=== PATIENT | female | born 1935 | race Caucasian/White ===

== ENCOUNTER 2021-10-16 21:08 | Inpatient (IN) | payer OTHER ==
[~2021-10-16] VITALS: Ht 167.6 cm; Wt 40.4 kg
[2021-10-16 21:09] VITALS: BP 160/75
--- NOTE | 2021-10-16 21:19 | NUR ---
PT BIBA BLS ER BED 7
--- NOTE | 2021-10-16 21:26 | NUR ---
PT ON SUPERVISOR PILE DRIVING
[2021-10-16] MEDS ORDERED: NACL 0.9% 1,000 ML IV ONE (21:30)
[2021-10-16] MEDS ORDERED: ONDANSETRON 4 MG/2 ML VIAL IVP ONE (21:30)
--- NOTE | 2021-10-16 21:52 | NUR ---
PT TAKEN TO CT
--- NOTE | 2021-10-16 21:53 | NUR ---
pt taken to ct
--- NOTE | 2021-10-16 21:53 | NUR ---
24G IV CATH PLACED IN L FOREARM
[2021-10-16 22:02] LABS: BASOPHILS # (AUTO) 0.1 K/uL (0.00-0.22); BASOPHILS % (AUTO) 1.2 % (0.0-2.0); EOSINOPHILS # (AUTO) 0.1 K/uL (0-0.4); EOSINOPHILS % (AUTO) 1.4 % (0.0-4.0); HEMATOCRIT 33.3 % (36-48); LYMPHOCYTES # (AUTO) 0.7 K/uL (2.5-16.5); LYMPHOCYTES % (AUTO) 16.2 % (20.5-51.1); MEAN CORPUSCULAR HEMOGLOBIN 33 pg (27-31); MEAN CORPUSCULAR HGB CONC 33 g/dL (33-37); MONOCYTES # (AUTO) 0.3 K/uL (0.8-1.0); NEUTROPHILS # (AUTO) 3.3 K/uL (1.8-7.7); NEUTROPHILS % (AUTO) 74.2 % (42.2-75.2); PLATELET COUNT (AUTO) 246 K/uL (140-450); RED BLOOD CELL COUNT(AUTO) 3.29 MIL/uL (4.20-5.40); RED CELL DISTRIBUTION WIDTH 16.5 % (11.6-13.7); WHITE BLOOD COUNT (AUTO) 4.4 K/uL (4.8-10.8)
--- NOTE | 2021-10-16 22:07 | NUR ---
PT RETURNED FROM CT
[2021-10-16 22:23] LABS: ALBUMIN 3.4 g/dL (3.4-5.0); ANION GAP 13.3 (8-16); ASPARTATE AMINOTRANSFERASE 15 U/L (15-37); CHLORIDE 107 mmol/L (98-107); CREATININE 0.8 mg/dL (0.6-1.3); GLUCOSE 151 mg/dL (74-106); LIPASE 55 U/L (73-393); POTASSIUM 3.3 mmol/L (3.5-5.1); SODIUM SERUM 144 mmol/L (136-145); TOTAL BILIRUBIN 0.6 mg/dL (0.0-1.0); UREA NITROGEN, BLOOD 19 mg/dL (7-18)
--- NOTE | 2021-10-16 23:35 | NUR ---
URINE COLLECTED AND SENT TO LAB
--- NOTE | 2021-10-16 23:36 | NUR ---
86 YO F BIB A FROM [facility]. PT HAS NOT BEEN EATING/ DRINKING FOR TWO DAYS . PT STATES SHE FEELS WEAK . PT STATES SHE HAS NPT HAD ANY OTHER PROBLEMS . DENIES N/F//COUGH/ CHEST PAIN. PT HAS HAD LOOSE STOOLS X FEW DAYS. PT HAD SOB. EMR STATES THEY GAVE HER 3L NC AND WAS AT 99 % ROOM AIR. PT IS NOW ON ROOM AIR, PT HAS HISTORY AFIB AND DEMENTIA UPON RIDE IN EMS PT VOMITED BUT HAS STOPPED
--- NOTE | 2021-10-16 23:45 | NUR ---
PT REFUSED MED STATES SHE DOESNT WANT "THAT STUFF"
[2021-10-16 23:48] LABS: APPEARANCE,URINE HAZY (CLEAR); BILIRUBIN,URINE NEGATIVE (NEGATIVE); BLOOD, URINE TRACE-I (NEGATIVE); COLOR,URINE YELLOW (YELLOW); LEUKOCYTE ESTERASE ,URINE NEGATIVE (NEGATIVE); NITRITE, URINE NEGATIVE (NEGATIVE); PH,URINE 6.5 (5.0-9.0); UGLUCOSE NEGATIVE (NEGATIVE)
[2021-10-16 23:58] LABS: WBC,URINE 0-5 /HPF (0-5)
[2021-10-17] MEDS ORDERED: LORazepam 0.5 MG TAB PO ONE (01:05)
[2021-10-17] MEDS ORDERED: cefTRIAXone 1,000 MG VIAL ONE (01:27)
[2021-10-17] MEDS ORDERED: AMLO5TAB PO (01:51)
[2021-10-17] MEDS ORDERED: CITA20TA15 PO (01:52)
[2021-10-17] MEDS ORDERED: LEVO0.083 PO (01:54)
[2021-10-17] MEDS ORDERED: ACET-10509 PO (01:55)
[2021-10-17] MEDS ORDERED: LOPE1LIQ PO (02:56)
--- NOTE | 2021-10-17 04:20 | NUR ---
PT AGITATED WANTS TO GO HOME
[2021-10-17] MEDS ORDERED: LORazepam 2 MG/ML VIAL ONE (06:51)
--- NOTE | 2021-10-17 07:21 | NUR ---
Pt report received from AIDE Walker . Transfer of care at this time.
[2021-10-17] MEDS ORDERED: LORazepam 2 MG/ML VIAL IVP SCH (07:25)
--- NOTE | 2021-10-17 07:25 | NUR ---
RECEIVED REPORT FROM MANAGER SOUNDTANVI KIMBROUGH. PT A&OX1, VERY CONFUSED. NEEDS FREQUENT REDIRECTION. PERRLA. ROOM AIR. RESPIRATIONS EVEN AND UNLABORED. 24G IV TO L FOREARM SALINE LOCK. BOWEL SOUNDS ACTIVE. MILD WEAKNESS. STANDARD PRECAUTION. BED IN LOWEST POSITION. CALL LIGHT WITHIN REACH.
--- NOTE | 2021-10-17 07:31 | NUR ---
Patient will be admitted to care of Dr Carrillo. Admited to ICU. Will go to bed 2 for hospital convenience. Belongings list completed. Report to TANVI Thompson.
[2021-10-17 08:00] VITALS: BP 115/60
[2021-10-17] MEDS ORDERED: DOCUSATE SODIUM 100 MG GELCAP PO PRN (09:10)
[2021-10-17] MEDS ORDERED: ONDANSETRON 4 MG/2 ML VIAL IM/IVP PRN (09:10)
[2021-10-17] MEDS ORDERED: POTASSIUM CHLORIDE 10 MEQ TABER PO PRN (09:10)
[2021-10-17] MEDS ORDERED: guaiFENesin DM 200/20 MG-10 ML 10 ML UDC PO PRN (09:10)
[2021-10-17] MEDS ORDERED: ZOLPIDEM 5 MG TAB PO PRN (09:10)
[2021-10-17] MEDS ORDERED: POTASSIUM CHLORIDE 10 MEQ TABER PO SCH (10:00)
--- NOTE | 2021-10-17 10:10 | NUR ---
24 G IV TO LAC INFILTRATED. STARTED NEW IV 20G TO LAC. FLUSHES WELL. GOOD BLOOD RETURN. PATENT, INTACT. SALINE LOCK.
[2021-10-17] MEDS: NACL 0.9% 1,000 ML IV SCH ×2 (10:30→21:08)
[2021-10-17 11:02] LABS: BASOPHILS # (AUTO) 0.1 K/uL (0.00-0.22); EOSINOPHILS % (AUTO) 0.4 % (0.0-4.0); HEMATOCRIT 33.1 % (36-48); LYMPHOCYTES # (AUTO) 0.9 K/uL (2.5-16.5); MEAN CORPUSCULAR HEMOGLOBIN 34 pg (27-31); MEAN CORPUSCULAR HGB CONC 33 g/dL (33-37); MEAN CORPUSCULAR VOLUME 101.4 fL (80-94); MONOCYTES # (AUTO) 0.3 K/uL (0.8-1.0); MONOCYTES % (AUTO) 5.7 % (1.7-9.3); NEUTROPHILS % (AUTO) 75.9 % (42.2-75.2); PLATELET COUNT (AUTO) 269 K/uL (140-450); RED BLOOD CELL COUNT(AUTO) 3.26 MIL/uL (4.20-5.40); RED CELL DISTRIBUTION WIDTH 16.2 % (11.6-13.7); WHITE BLOOD COUNT (AUTO) 5.3 K/uL (4.8-10.8)
[2021-10-17 11:14] LABS: PROTHROMBIN TIME 10.3 secs (10.8-13.4)
[2021-10-17 11:29] LABS: CHOL/HDL RATIO 3.1 (1-4.5); FREE T4 (FREE THYROXINE) 1.16 ng/dL (0.76-1.46); THYROID STIMULATING HORMONE 0.69 uIU/mL (0.34-3.74)
--- NOTE | 2021-10-17 11:45 | NUR ---
PT FREQUENTLY TRYING TO GET OUT OF BED. REDIRECTED. CONTACTED DR. DE LA CRUZ FOR ORDERS. ORDERED SEROQUEL 25 MG BID.
[2021-10-17 12:00] VITALS: BP 154/93
[2021-10-17] MEDS ORDERED: QUEtiapine FUMARATE 25 MG TAB PO SCH (12:10)
[2021-10-17 12:38] LABS: ALBUMIN 3.5 g/dL (3.4-5.0); ASPARTATE AMINOTRANSFERASE 17 U/L (15-37); CARBON DIOXIDE 24.5 mmol/L (21-32); CHLORIDE 108 mmol/L (98-107); CREATININE 0.7 mg/dL (0.6-1.3); GLUCOSE 111 mg/dL (74-106); MAGNESIUM 1.8 mg/dL (1.8-2.4); POTASSIUM 3.5 mmol/L (3.5-5.1); SODIUM SERUM 142 mmol/L (136-145); TOTAL BILIRUBIN 0.5 mg/dL (0.0-1.0); UREA NITROGEN, BLOOD 18 mg/dL (7-18)
--- NOTE | 2021-10-17 13:27 | NUR ---
PT HAD MODERATE SIZE BM AND USED PUREWICK TO URINATE. INCONTINENT OF BOWEL BUT CONTINENT OF BLADDER. PERICARE PERFORMED. ALL COMFORT NEEDS MET AT THIS TIME.
[2021-10-17] MEDS: LORazepam 0.5 MG TAB PO PRN (15:46)
[2021-10-17 16:00] VITALS: BP 131/93
--- NOTE | 2021-10-17 16:45 | NUR ---
ENDORSED REPORT TO TANVI COATS. PT TRANSFERRED TO [facility] BED 121A.
--- NOTE | 2021-10-17 16:46 | NUR ---
RECEIVED REPORT FROM TANVI PRYOR FOR CONTINUITY OF CARE. PT IS STABLE.
--- NOTE | 2021-10-17 17:15 | NUR ---
SPEECH THERAPIST AT BEDSIDE.
--- NOTE | 2021-10-17 17:27 | NUR ---
PT WAS SEEN FOR DYSPHAGIA. PT WAS ABLE TO SAFELY SWALLOW MS DIET WITH THIN LIQUID WITHOUT S/S OF ASPIRATION. RECOMMENDATION MS DIET WITH THIN LIQUID
[2021-10-17] MEDS ORDERED: HALOPERIDOL IM 5 MG/ML VIAL IM ONE (18:30)
[2021-10-17] MEDS ORDERED: HALOPERIDOL IM 5 MG/ML VIAL ONE (18:34)
--- NOTE | 2021-10-17 19:37 | NUR ---
ENDORSED TO MACHINE SET UP OPERATOR PAPER GOODS NURSE FOR CONTINUITY OF CARE. PT IS STABLE.
--- NOTE | 2021-10-17 19:39 | NUR ---
GET THE REPORT FROM MORNING NURSE JORGE L , PATIENT IS LYING ON BED, PATIENT IS ALERT ORIENTED X1, ALL FALL PRECAUTION MEASURE ARE IN PLACE, PATIENT IS REFUSED TO HAVE COCOA PRESS OPERATOR ON HER , CALL LIGHT IS WITHIN THE REACH, WILL CONTINUE TO MONITOR PATIENT.
[2021-10-17 20:00] VITALS: BP 128/65
[2021-10-17] MEDS: QUEtiapine FUMARATE 25 MG TAB PO SCH (20:38)
--- NOTE | 2021-10-17 20:39 | NUR ---
NOT ADMINISTER SEROQUEL 50 MG PO DUE TO PATIENT IS DROWSY AND IN DEEP SLEEP, WILL CONTINUE TO MONITOR PATIENT.
--- NOTE | 2021-10-17 21:10 | NUR ---
PATIENT IS LYING ON BED, VITAL SIGN IS WITHIN THE NORMAL RANGE, NO ANY COMPLAIN OF PAIN OR SHORTNESS AT THIS TIME, ALL OTHER SCHEDULE MEDICATION IS GIVEN PER DOCTOR ORDER, CALL LIGHT IS WITHIN THE REACH, WILL CONTINUE TO MONITOR PATIENT.
--- NOTE | 2021-10-17 21:12 | NUR ---
MASSAGE THE DOCTOR JONO TO GET ORDER FOR SITTER FOR PATIENT, WILL WAIT FOR DOCTOR RESPONSE, CALL LIGHT IS WITHIN THE REACH, WILL CONTINUE TO MONITOR PATIENT.
--- NOTE | 2021-10-17 21:36 | NUR ---
DOCTOR JONO REPLIED WITH OF TO HAVE SITTER FOR PATIENT,WILL FOLLOW DOCTOR ORDER, CALL LIGHT IS WITHIN THE REACH, WILL CONTINUE TO MONITOR PATIENT.
[2021-10-18] VITALS: BP 122/68
[2021-10-18 04:00] VITALS: BP 168/72
--- NOTE | 2021-10-18 04:14 | NUR ---
VITAL SIGN IS WITHIN THE NORMAL RANGE, NO ANY COMPLAIN OF PAIN OR SHORTNESS OF BREATH, CALL LIGHT IS WITHIN THE REACH, WILL CONTINUE TO MONITOR PATIENT.
--- NOTE | 2021-10-18 04:41 | NUR ---
PATIENT BLOOD PRESSURE IS 168/72,HR :88/M, MASSAGE DOCTOR JONO ABOUT PATIENT BLOOD PRESSURE, WAITING FOR DOCTOR TO RESPONSE, CALL LIGHT IS WITHIN THE REACH, WILL CONTINUE TO MONITOR PATIENT.
[2021-10-18 05:49] LABS: BASOPHILS # (AUTO) 0.1 K/uL (0.00-0.22); BASOPHILS % (AUTO) 2.8 % (0.0-2.0); EOSINOPHILS # (AUTO) 0.2 K/uL (0-0.4); EOSINOPHILS % (AUTO) 3.7 % (0.0-4.0); HEMATOCRIT 30.1 % (36-48); HEMOGLOBIN 10.1 g/dL (12.0-16.0); LYMPHOCYTES # (AUTO) 1.1 K/uL (2.5-16.5); LYMPHOCYTES % (AUTO) 25.6 % (20.5-51.1); MEAN CORPUSCULAR HEMOGLOBIN 34 pg (27-31); MEAN CORPUSCULAR HGB CONC 34 g/dL (33-37); MEAN CORPUSCULAR VOLUME 100.5 fL (80-94); MONOCYTES # (AUTO) 0.4 K/uL (0.8-1.0); MONOCYTES % (AUTO) 9.5 % (1.7-9.3); NEUTROPHILS # (AUTO) 2.4 K/uL (1.8-7.7); NEUTROPHILS % (AUTO) 58.4 % (42.2-75.2); PLATELET COUNT (AUTO) 246 K/uL (140-450); RED CELL DISTRIBUTION WIDTH 16.3 % (11.6-13.7); WHITE BLOOD COUNT (AUTO) 4.2 K/uL (4.8-10.8)
[2021-10-18 06:30] LABS: ANION GAP 9.4 (8-16); CHLORIDE 112 mmol/L (98-107); CREATININE 0.8 mg/dL (0.6-1.3); GLUCOSE 95 mg/dL (74-106); POTASSIUM 3.4 mmol/L (3.5-5.1); SODIUM SERUM 144 mmol/L (136-145); UREA NITROGEN, BLOOD 15 mg/dL (7-18)
--- NOTE | 2021-10-18 06:35 | NUR ---
MASSAGE DOCTOR JONO AGAIN ABOUT PATIENT BLOOD PRESSURE MEDICATION, STILL WAITING FOR DOCTOR TO RESPONSE, CALL LIGHT IS WITHIN THE REACH, WILL CONTINUE TO MONITOR PATIENT.
[2021-10-18] MEDS ORDERED: hydrALAZINE 20 MG/ML VIAL ONE (07:00)
[2021-10-18] MEDS ORDERED: hydrALAZINE 20 MG/ML VIAL IVP PRN (07:00)
[2021-10-18 07:06] LABS: T4 (THYROXINE) 8.4 ug/dL (4.5-12.0)
--- NOTE | 2021-10-18 07:11 | NUR ---
DR DE LA CRUZ ORDER HYDRALAZINE 10 MG IV FOR SBP>160, CALL THE [facility] TO VERIFY THE MEDICATION , THEY SAID THEY ARE OUT OF SERVICE FOR [facility] , MEDICATION OVERRIDE FROM STOCK MEDICATION ANG GIVEN TO PATIENT. CALL LIGHT IS WITHIN THE REACH, WILL CONTINUE TO MONITOR PATIENT.
--- NOTE | 2021-10-18 07:15 | NUR ---
RECEIVED BEDSIDE REPORT FROM PASTOR REDDING RN FOR CONTINUITY OF CARE. PT SUPINE IN THE BED. AAOX1. ON RM AIR. AFIB/ ST ON TELE MONITOR. RFA 22G PATENT, INTACT, INFUSING NS AT 60 ML/H. INCONTINENT OF BOWEL AND BLADDER. MODERATE WEAKNESS. SKIN INTACT. SITTER AT BEDSIDE. STANDARD ISOLATION. INITIAL ASSESSMENT COMPLETE, WILL CONTINUE TO CLOSELY MONITOR.
--- NOTE | 2021-10-18 07:40 | NUR ---
GAVE THE REPORT TO MORNING NURSE MONICA FOR CONTINUOS OF CARE, PATIENT IS STABLE.
[2021-10-18 08:00] VITALS: BP 181/95
--- NOTE | 2021-10-18 08:28 | NUR ---
PATIENT HAS BEEN SCREENED AND CATEGORIZED HIGH NUTRITION RISK. PATIENT WILL BE SEEN WITHIN 1-2 DAYS OF ADMISSION. 10/17/21-10/18/[address]
[2021-10-18 09:06] LABS: FOLIC ACID 5.7 ng/mL (>3.0)
[2021-10-18] MEDS: QUEtiapine FUMARATE 25 MG TAB PO SCH (09:30)
[2021-10-18] MEDS: LORazepam 0.5 MG TAB PO PRN (09:36)
[2021-10-18] MEDS: LEVOTHYROXINE 0.088 MG TAB PO SCH (09:42)
[2021-10-18] MEDS: CITALOPRAM 20 MG TAB PO SCH (09:44)
[2021-10-18] MEDS: amLODIPine 5 MG TAB PO SCH (09:44)
[2021-10-18] MEDS: PANTOPRAZOLE 40 MG TABEC PO SCH (09:45)
[2021-10-18] MEDS ORDERED: HALOPERIDOL IM 5 MG/ML VIAL ONE (10:21)
[2021-10-18] MEDS: HALOPERIDOL IM 5 MG/ML VIAL IM PRN (10:25)
--- NOTE | 2021-10-18 10:30 | NUR ---
DR DE LA CRUZ ROUNDMESHA AT BEDSIDE. PT VERY AGITATED. PULLED IV TUBING APART. DR ORDERED SOFT WRIST RESTRAINTS. HALDOL 5MG IM Q8H PRN FOR AGITATION, HE SAID HE WILL INCREASE SEROQUEL DOSE TO 100 MG, HE ALSO ORDERED PSYCH CONSULT. HALDOL GIVEN ORDERED NOW. WILL CONTINUE TO CLOSELY MONITOR.
[2021-10-18] MEDS ORDERED: QUEtiapine FUMARATE 25 MG TAB PO SCH ×2 (11:30→12:00)
[2021-10-18 12:00] VITALS: BP 164/73
--- NOTE | 2021-10-18 12:00 | NUR ---
PT RESTING, SITTER AT BEDSIDE. WILL CONTINUE TO CLOSELY MONITOR.
--- NOTE | 2021-10-18 14:00 | NUR ---
PT AWAKE, SEROQUEL GIVEN LATE DUE TO PT REFUSING EARLIER, CRUSHED TABS WITH PINEAPPLE CUP FROM LUNCH TRAY.
[2021-10-18 16:00] VITALS: BP 164/73
--- NOTE | 2021-10-18 16:00 | NUR ---
PT RESTING. RESPIRATIONS EVEN AND UNLABORED. WILL CONTINUE TO CLOSELY MONITOR.
--- NOTE | 2021-10-18 17:48 | NUR ---
10/18/2021 RD INITIAL ASSESSMENT COMPLETED. PLEASE REFER TO NUTRITION ASSESSMENT UNDER CARE ACTIVITY FOR ESTIMATED NUTRITIONAL NEEDS. 1.CONTINUE WITH PUREED DIET PT TOLERATES. WHEN/IF MEDICALLY APPROPRIATE, MAY ADVANCE TO MECHANICAL SOFT. 2.IF PT TOLERATES ENSURE GIVEN DURING RD VISIT, RECOMMEND ENSURE TID TO OPTIMIZE NUTRITION. 3.MONITOR PO INTAKE. 4.RD TO FOLLOW-UP IN 2-3 DAYS PATIENT IS HIGH RISK. GOLDIE WEISS RD
--- NOTE | 2021-10-18 17:50 | NUR ---
SPOKE WITH PT DAUGHTER SONA VIA PHONE AND UPDATED REGARDING PT CONDITION AND PLAN OF CARE. ALL QUESTIONS ANSWERED.
[2021-10-18] MEDS: NACL 0.9% 1,000 ML IV SCH ×2 (18:30→23:08)
--- NOTE | 2021-10-18 19:10 | NUR ---
endorsed bedside report to jordyn yates rn for continuity of care. all questions answered.
--- NOTE | 2021-10-18 19:11 | NUR ---
RECEIVED PT FROM MORNING SHIFT NURSE. PT IS AAOX2, ABLE TO VERBALIZE NEEDS AND ABLE TO FOLLOW COMMANDS. PT IS ON ROOM AIR, AND ON MECHANICAL SOFT DIET DIET. PT HAS RIGHT FOREARM GAUGE 22 RUNNING WITH NS AT 60ML/HR. PT SKIN IS INTACT. NO COMPLAIN OF PAIN THIS TIME AND NO S/S OF RESPIRATORY DISTRESS NOTED. ALL SAFETY MEASURES IMPLEMENTED. CALL LIGHT WITHIN REACH, BED IN LOW POSITION AND BED WHEELS ON LOCKED.
--- NOTE | 2021-10-18 19:52 | NUR ---
endorsed bedside report to jordyn yates rn for continuity of care. all questions answered. Addendum: 10/18/21 at 1953 by Samantha Irvin RN wrong time please disregard
[2021-10-18 20:00] VITALS: BP 145/90
[2021-10-18] MEDS: QUEtiapine FUMARATE 100 MG TAB PO SCH (20:30)
--- NOTE | 2021-10-18 20:30 | NUR ---
ALL SCHEDULED PRESCRIBED MEDICATION WAS GIVEN TO PT PER MD ORDER. PT TOLERATED IT WELL. ALL SAFETY MEASURES IMPLEMENTED. CALL LIGHT WITHIN REACH, BED IN LOW POSITION AND BED WHEELS ON LOCKED.
--- NOTE | 2021-10-18 23:08 | NUR ---
CHANGED NEW NS RUNNING AT 60ML/HR. ALL SAFETY MEASURES IMPLEMENTED. BED WHEELS ON LOCKED. BED IN LOW POSITION AND CALL LIGHT WITHIN REACH.
[2021-10-19] VITALS: BP 141/65
--- NOTE | 2021-10-19 | NUR ---
PT WAS GIVEN WATER PER PT REQUEST. NO COMPLAIN OF PAIN. NO S/S OF REPARATORY DISTRESS NOTED. ALL SAFETY MEASURES IMPLEMENTED. BED WHEELS ON LOCKED. BED IN LOW POSITION AND CALL LIGHT WITHIN REACH.
--- NOTE | 2021-10-19 02:00 | NUR ---
PT IS SLEEPING. CHEST RISE AND FALL SYMMETRICALLY NOTED. RESPIRATION ARE EVEN AND UNLABORED. NO S/S OF REPARATORY DISTRESS NOTED. ALL SAFETY MEASURES IMPLEMENTED. BED WHEELS ON LOCKED. BED IN LOW POSITION AND CALL LIGHT WITHIN REACH.
[2021-10-19 04:00] VITALS: BP 158/71
--- NOTE | 2021-10-19 04:00 | NUR ---
PT IS LYING ON THE BED STILL SLEEPING. CHEST RISE AND FALL SYMMETRICAL NOTED WITH PULSE OF 73 AND WITH A-FIB/PVC'S RHYTHM. NO S/S OF RESPIRATORY DISTRESS. ALL SAFETY MEASURES IMPLEMENTED. BED WHEELS ON LOCKED. BED IN LOW POSITION AND CALL LIGHT WITHIN REACH.
--- NOTE | 2021-10-19 05:15 | NUR ---
MORNING CARE WAS DONE TO PT. CHANGED DIAPER, LINENS AND GOWN. ALL SAFETY MEASURES IMPLEMENTED. BED WHEELS ON LOCKED, BED IN LOW POSITION AND CALL LIGHT WITHIN REACH.
--- NOTE | 2021-10-19 05:52 | NUR ---
PT REFUSED TO GET BLOOD SAMPLE. PT WAS EDUCATED THE IMPORTANCE OF GETTING BLOOD SAMPLE. SHE STILL REFUSED.
[2021-10-19] MEDS: HALOPERIDOL IM 5 MG/ML VIAL IM PRN (07:15)
--- NOTE | 2021-10-19 07:36 | NUR ---
PT IS STABLE. ENDORSED PT TO MORNING SHIFT NURSE FOR CONTINUITY OF CARE.
--- NOTE | 2021-10-19 07:37 | NUR ---
RECEIVED REPORT FROM SMALL ARMS REPAIRER NURSE FOR CONTINUITY OF CARE. PATIENT CALM ASLEEP NO RESTRAINT ON ON ONE ON ONE SITTER. RESPIRATION EVEN AND NOT LABORED NO SHORTNESS OF BREATH ON ROOM AIR. IV SITE ON RIGHT FOREARM BROOKE 22 RUNNING NS AT 60 CC/HOURS. ALL SAFETY MEASURE IN PLACE.
[2021-10-19 08:00] VITALS: BP 150/89
--- NOTE | 2021-10-19 08:00 | NUR ---
REVIEWED AND DISCUSSED PLAN OF CARE WITH AIDE MCGRATH. PT IN STABLE CONDITION.
[2021-10-19] MEDS: PANTOPRAZOLE 40 MG TABEC PO SCH (09:01)
[2021-10-19] MEDS: LEVOTHYROXINE 0.088 MG TAB PO SCH (09:01)
[2021-10-19] MEDS: QUEtiapine FUMARATE 100 MG TAB PO SCH (09:01)
[2021-10-19] MEDS: amLODIPine 5 MG TAB PO SCH (09:02)
[2021-10-19] MEDS: CITALOPRAM 20 MG TAB PO SCH (09:02)
--- NOTE | 2021-10-19 09:04 | NUR ---
GIVEN HER DUE MEDIATION TOLERATED WELL BUT DON'T WANT TO EAT BREAKFAST AT THIS TIME SHE SAID A LITTLE BIT LATER.
[2021-10-19] MEDS ORDERED: CEPH-588 PO (10:16)
[2021-10-19] MEDS ORDERED: QUET100T PO (10:16)
--- NOTE | 2021-10-19 10:49 | NUR ---
P.T. NOTES P.T. EVAL COMPLETED; REFER TO EVAL FOR DETAILS.
--- NOTE | 2021-10-19 10:51 | NUR ---
ALECIA outreached to [facility] at [phone] to set up transportation back to [facility], [address] [facility] [address]. [facility] dispatch reported diamond picker time at 6:30 pm and reported they would provide an update, if pickup time changes. Addendum: 10/19/21 at 1121 by Jairo Connell SS ALECIA OUTREACHED TO NURSING STATION TO PROVIDE AN UPDATE ON TRANSPORT FOR PATIENT. ALECIA SPOKE WITH TONY WHO REPORTED SHE WILL PROVIDE PATIENTS NURSE, WITH DETAILS OF [facility] ESC[facility] INFORMATION.
--- NOTE | 2021-10-19 11:13 | NUR ---
I GOT CALL FROM CASE MANAGE THAT PATIENT WILL BE CLINICAL PSYCHOLOGY PROFESSOR AT 6:30 PM BY [facility] AND WILL BE BACK TO [facility] PATIENT AWARE.
--- NOTE | 2021-10-19 11:16 | NUR ---
DC PLANNING SW OUTREACHED TO [facility] TO GATHER COLLATERAL INFORMATION AND TO SET UP TRANSPORTATION. [facility] REPORTS THAT FACILITY DOES NOT PROVIDE TRANSPORTATION BACK TO FACILITY. [facility] ADMIN REPORTS PATIENT HAS BEEN A RESIDENT SINE NOV 2020. PATIENT IS REPORTEDLY AMBULATORY WITH [facility], HOWEVER, PATIENT ON OCCASION IS FORGETFUL AND DOES NOT UTILIZE REQUIRED. PATIENT REQUIRES MINIMUM ASSISTANCE WITH ADL'S. DC PLAN IS FOR PATIENT TO RETURN TO [facility]. SW SPOKE WITH DAUGHTER, SONA TO PROVIDE AN UPDATE. SW NOTIFIED SONA THAT PATIENT IS TO BE DISCHARGED AND TRANSPORTED BACK TO [facility]. TRANSPORT ARRANGED WITH [facility]; NEUROSCIENCE SPECIALIST IS SET UP FOR 6:30PM. SONA IN UNDERSTANDING AND APPRECIATIVE OF UPDATE.
--- NOTE | 2021-10-19 11:39 | NUR ---
CALL [facility] FOR REPORT BUT NO ANSWER LEFT MESSAGE TO VOICE MAIL WILL CALL AGAIN LATER.
[2021-10-19 11:40] VITALS: BP 150/89
--- NOTE | 2021-10-19 14:00 | NUR ---
PATIENT ON BED RESTING WATCHING TV WITH SITTER AT BED SIDE.
--- NOTE | 2021-10-19 15:50 | NUR ---
CALLED AGAIN [facility] TO GIVE REPORT FOR CONTINUITY OF CARE WHEN EVER THE [employer] STRAIGHTENER TRANSFER ME NO AVAILABLE TO TAKE THE FROM ANSWERING MACHINE.
--- NOTE | 2021-10-19 17:36 | NUR ---
PATIENT ALERT ABLE TO RESPONDS VERBALLY RESPIRATION EVEN AND NOT LABORED NO SHORTNESS OF BREATH. INSTRUCTED RESIDENT TO INCREASE FLUID INTAKE TOLERATE. RESIDENT ON STABLE CONDITION CALM NO ABNORMAL BEHAVIOR. NAME BAND AND IV REMOVED WITH CATHETER INTACT. ALL BELONGING AND DISCHARGE PACKET GIVEN TO TRANSPORTATION STAFF TO BE GIVEN TO [facility]. PATIENT ON A GURNEY WHEELED BY 2 TRANSPORTATION STAFF.
[2021-10-20] MEDS ORDERED: LEVOTHYROXINE 0.088 MG TAB PO SCH (06:30)
== END 2021-10-19 17:30 | DRG 640 ==
LOC: MED 21:08 → MTU 10-17 05:11 → OBSVTOIN 10-17 05:11 → MIC 10-17 06:39 → MTU 10-17 17:00
PROVIDERS: ADMIT Student in an Organized Health Care Education/Training Program; ATTEND Student in an Organized Health Care Education/Training Program
DX: E86.0 Dehydration (principal); G93.41 Metabolic encephalopathy; N39.0 Urinary tract infection, site not specified; Z68.1 Body mass index [BMI] 19.9 or less, adult; E44.1 Mild protein-calorie malnutrition; Z20.822 Contact with and (suspected) exposure to COVID-19; E78.5 Hyperlipidemia, unspecified; F03.90 Unspecified dementia, unspecified severity, without behavioral disturbance, psychotic disturbance, mood disturbance, and anxiety; F32.A Depression, unspecified; E03.9 Hypothyroidism, unspecified; D53.9 Nutritional anemia, unspecified; Z79.891 Long term (current) use of opiate analgesic; Z79.899 Other long term (current) drug therapy
CPT/HCPCS: 36415; 70450; 71045; 80048; 80053; 81001; 82150; 82607; 82728; 82746; 83036; 83540; 83605; 83690; 83735; 83880; 84100; 84436; 84439; 84443; 84479; 84484; 85025; 85045; 85610; 85730; 87040; 87081; 87086; 92610; 93005; 96361; 96365; 96375; 97110; 97112; 99285; J0360; J0696; J1630; J2060; J7030; J7060; Q0092